=== PATIENT | male | born 1980 | race Caucasian/White ===

== ENCOUNTER 2018-02-16 23:15 | Emergency (ER) | payer OTHER ==
--- NOTE | 2018-02-16 23:27 | ER Report ---
History and Physical Time Seen By MD: 23:26 HPI/ROS CHIEF COMPLAINT: Altered mental status, hypoxia HISTORY OF PRESENT ILLNESS: 37-year-old male from [place] brought here by his friend with concerns over his altered mental status. Patient's been at work with his friends. He's visiting a facility from [place]. He's been exposed to pool chemicals and products. Friends denies alcohol ingestion. Patient's note a decreased pulse ox. Patient's here from altitude. He does regularly runs long distances upwards of 10 miles in [place]. When he arrived on Wednesday. He did go for a run without any difficulty. REVIEW OF SYSTEMS: Respiratory: As above Cardiovascular: No chest pain, no palpitations. Gastrointestinal: No vomiting, no abdominal pain. Musculoskeletal: No back pain. Allergies: Coded Allergies: No Known Drug Allergies (Unverified , 02/16/18) Home Meds No Active Prescriptions or Reported Meds Reviewed Nurses Notes: Yes Old Medical Records Reviewed: Yes Constitutional Vital Sign - Last 24 Hours 02/16/18 02/16/18 02/16/18 02/16/18 23:15 23:23 23:28 23:30 Temp 97.9 Pulse ??? 106 107 Resp 22 B/P (MAP) 155/100 (118) 155/100 155/94 (114) Pulse Ox 81 93 O2 Delivery Room Air 02/16/18 02/16/18 02/16/18 02/16/18 23:35 23:35 23:45 23:55 Pulse 110 108 Resp 20 Pulse Ox 92 89 O2 Delivery Nasal Cannula O2 Flow Rate 2.0 3.0 02/17/18 02/17/18 02/17/18 02/17/18 00:00 00:15 00:30 00:45 Pulse 104 120 104 99 Resp 38 18 15 B/P (MAP) 125/102 (110) 139/97 (111) Pulse Ox 91 96 02/17/18 02/17/18 02/17/18 02/17/18 01:00 01:05 01:10 01:20 Pulse ? 107 B/P (MAP) 128/82 (97) Pulse Ox 97 02/17/18 02/17/18 02/17/18 02/17/18 01:30 01:35 01:50 02:00 Pulse 102 96 B/P (MAP) 140/91 (107) 114/78 (90) Pulse Ox 96 96 02/17/18 02/17/18 02/17/18 02/17/18 02:05 02:20 02:30 02:35 Pulse 96 88 80 B/P (MAP) 91/56 (68) Pulse Ox 97 97 97 02/17/18 02/17/18 02/17/18 02/17/18 02:40 02:55 03:00 03:10 Pulse 80 79 78 B/P (MAP) 86/54 (65) Pulse Ox 98 97 98 02/17/18 02/17/18 02/17/18 02/17/18 03:25 03:30 03:40 03:55 Pulse 91 82 ??? B/P (MAP) 78/58 (65) Pulse Ox 98 97 97 02/17/18 02/17/18 02/17/18 02/17/18 04:00 04:10 04:25 04:31 Pulse 96 ??? B/P (MAP) 104/69 (81) 139/95 (110) Pulse Ox 96 02/17/18 02/17/18 02/17/18 02/17/18 04:36 05:00 05:06 05:11 Pulse 94 ? B/P (MAP) ???/??? (1665) Pulse Ox 96 02/17/18 05:30 B/P (MAP) ???/??? (1665) Intake and Output 02/16/18 02/16/18 02/17/18 15:00 23:00 07:00 Intake Total 1015 ml Balance 1015 ml Physical Exam General Appearance: The patient is alert, has no immediate need for airway protection and no current signs of toxicity.. Vital signs stable, room air pulse ox low 80s HEENT: Pupils equal and round no injection. Respiratory: Chest is non tender, lungs are clear to auscultation. No wheezing or rails Cardiac: regular rate and rhythm Gastrointestinal: Abdomen is soft and non tender, no masses, bowel sounds normal. Musculoskeletal: Neck: Neck is supple and non tender. Extremities have full range of motion and are non tender. Skin: No rashes or lesions. DIFFERENTIAL DIAGNOSIS: After history and physical exam differential diagnosis was considered for altered mental status including but not limited to hypoglycemia, infectious process, electrolyte abnormality, head injury and intoxicants. Medical Decision Making Data Points Result Diagram: 02/16/18 2343 02/16/18 2343 Laboratory Hematology Test 02/16/18 00:24 02/16/18 23:43 02/17/18 00:20 Blood Gas Puncture Site Right radial Blood Gas Patient Temperature 98.5 DEGREES Arterial Blood pH 7.37 (7.35-7.45) Arterial Blood Partial Pressure CO2 38 mmHg (32-37) Arterial Blood Partial Pressure O2 97 mmHg (60-80) Arterial Blood HCO3 22 mmol/L (20-26) Arterial Blood Oxygen Saturation 97 % (92-100) Arterial Blood Base Excess -4.0 mmol/L Austin Test Acceptable Oxygen Liters/Minute 2.5 Red Blood Count 5.56 M/uL (4.00-5.60) Mean Corpuscular Volume 87.7 fL (80.0-96.0) Mean Corpuscular Hemoglobin 29.7 pg (26.0-33.0) Mean Corpuscular Hemoglobin Concent 33.9 g/dL (32.0-36.0) Red Cell Distribution Width 14.1 % (11.5-14.5) Mean Platelet Volume 8.7 fL (7.2-11.1) Neutrophils (%) (Auto) 89.8 % (39.4-72.5) Lymphocytes (%) (Auto) 8.9 % (17.6-49.6) Monocytes (%) (Auto) 0.6 % (4.1-12.4) Eosinophils (%) (Auto) 0.0 % (0.4-6.7) Basophils (%) (Auto) 0.7 % (0.3-1.4) Nucleated RBC Relative Count (auto) 0.1 /100WBC Neutrophils # (Auto) 8.9 K/uL (2.0-7.4) Lymphocytes # (Auto) 0.9 K/uL (1.3-3.6) Monocytes # (Auto) 0.1 K/uL (0.3-1.0) Eosinophils # (Auto) 0.0 K/uL (0.0-0.5) Basophils # (Auto) 0.1 K/uL (0.0-0.1) Nucleated RBC Absolute Count (auto) 0.01 K/uL Prothrombin Time 12.0 seconds (12.0-14.4) Prothromb Time International Ratio 0.88 Activated Partial Thromboplast Time 28 seconds (23-35) D-Dimer Quantitative (PE/DVT) 0.94 ug/ml (0-0.50) Sodium Level 148 mmol/L (137-145) Potassium Level 4.3 mmol/L (3.5-5.0) Chloride Level 108 mmol/L (98-107) Carbon Dioxide Level 25 mmol/L (22-30) Blood Urea Nitrogen 13 mg/dl (9-21) Creatinine 1.30 mg/dl (0.66-1.25) Glomerular Filtration Rate Calc > 60.0 Random Glucose 161 mg/dl (75-110) Lactate 3.4 mmol/L (0.7-2.1) Calcium Level 9.7 mg/dl (8.4-10.2) Total Bilirubin 0.3 mg/dl (0.2-1.3) Aspartate Amino Transf (AST/SGOT) 41 U/L (0-35) Alanine Aminotransferase (ALT/SGPT) 43 U/L (0-56) Alkaline Phosphatase 56 U/L (0-126) Troponin I < 0.012 ng/ml B-Type Natriuretic Peptide 6 pg/ml (0-100) Total Protein 8.4 g/dl (6.3-8.2) Albumin 4.9 g/dl (3.5-5.0) Salicylates Level < 10 mg/L Salicylate Last Dose Date unk Acetaminophen Level < 10 ug/ml Serum Alcohol 389 mg/dl Urine Opiates Screen Negative Urine Barbiturates Screen Negative Ur Tricyclic Antidepressants Screen Negative Urine Phencyclidine Screen Negative Urine Amphetamines Screen Negative Urine Benzodiazepines Screen Negative Urine Cocaine Screen Negative Urine Cannabinoids Screen Negative Chemistry Test 02/16/18 00:24 02/16/18 23:43 02/17/18 00:20 Blood Gas Puncture Site Right radial Blood Gas Patient Temperature 98.5 DEGREES Arterial Blood pH 7.37 (7.35-7.45) Arterial Blood Partial Pressure CO2 38 mmHg (32-37) Arterial Blood Partial Pressure O2 97 mmHg (60-80) Arterial Blood HCO3 22 mmol/L (20-26) Arterial Blood Oxygen Saturation 97 % (92-100) Arterial Blood Base Excess -4.0 mmol/L Austin Test Acceptable Oxygen Liters/Minute 2.5 White Blood Count 9.9 k/uL (4.5-11.0) Red Blood Count 5.56 M/uL (4.00-5.60) Hemoglobin 16.5 g/dL (14.0-18.0) Hematocrit 48.8 % (42.0-52.0) Mean Corpuscular Volume 87.7 fL (80.0-96.0) Mean Corpuscular Hemoglobin 29.7 pg (26.0-33.0) Mean Corpuscular Hemoglobin Concent 33.9 g/dL (32.0-36.0) Red Cell Distribution Width 14.1 % (11.5-14.5) Platelet Count 401 K/uL (150-450) Mean Platelet Volume 8.7 fL (7.2-11.1) Neutrophils (%) (Auto) 89.8 % (39.4-72.5) Lymphocytes (%) (Auto) 8.9 % (17.6-49.6) Monocytes (%) (Auto) 0.6 % (4.1-12.4) Eosinophils (%) (Auto) 0.0 % (0.4-6.7) Basophils (%) (Auto) 0.7 % (0.3-1.4) Nucleated RBC Relative Count (auto) 0.1 /100WBC Neutrophils # (Auto) 8.9 K/uL (2.0-7.4) Lymphocytes # (Auto) 0.9 K/uL (1.3-3.6) Monocytes # (Auto) 0.1 K/uL (0.3-1.0) Eosinophils # (Auto) 0.0 K/uL (0.0-0.5) Basophils # (Auto) 0.1 K/uL (0.0-0.1) Nucleated RBC Absolute Count (auto) 0.01 K/uL Prothrombin Time 12.0 seconds (12.0-14.4) Prothromb Time International Ratio 0.88 Activated Partial Thromboplast Time 28 seconds (23-35) D-Dimer Quantitative (PE/DVT) 0.94 ug/ml (0-0.50) Glomerular Filtration Rate Calc > 60.0 Lactate 3.4 mmol/L (0.7-2.1) Calcium Level 9.7 mg/dl (8.4-10.2) Total Bilirubin 0.3 mg/dl (0.2-1.3) Aspartate Amino Transf (AST/SGOT) 41 U/L (0-35) Alanine Aminotransferase (ALT/SGPT) 43 U/L (0-56) Alkaline Phosphatase 56 U/L (0-126) Troponin I < 0.012 ng/ml B-Type Natriuretic Peptide 6 pg/ml (0-100) Total Protein 8.4 g/dl (6.3-8.2) Albumin 4.9 g/dl (3.5-5.0) Salicylates Level < 10 mg/L Salicylate Last Dose Date unk Acetaminophen Level < 10 ug/ml Serum Alcohol 389 mg/dl Urine Opiates Screen Negative Urine Barbiturates Screen Negative Ur Tricyclic Antidepressants Screen Negative Urine Phencyclidine Screen Negative Urine Amphetamines Screen Negative Urine Benzodiazepines Screen Negative Urine Cocaine Screen Negative Urine Cannabinoids Screen Negative Coagulation Test 02/16/18 23:43 Prothrombin Time 12.0 seconds Prothromb Time International Ratio 0.88 Activated Partial Thromboplast Time 28 seconds D-Dimer Quantitative (PE/DVT) 0.94 ug/ml Toxicology Test 02/16/18 23:43 02/17/18 00:20 Salicylates Level < 10 mg/L Salicylate Last Dose Date unk Acetaminophen Level < 10 ug/ml Serum Alcohol 389 mg/dl Urine Opiates Screen Negative Urine Barbiturates Screen Negative Ur Tricyclic Antidepressants Screen Negative Urine Phencyclidine Screen Negative Urine Amphetamines Screen Negative Urine Benzodiazepines Screen Negative Urine Cocaine Screen Negative Urine Cannabinoids Screen Negative EKG/Imaging Imaging X-ray: Single view portable chest x-ray was obtained. I viewed the images myself on the PACS system. My interpretation of the images is: No infiltrate, no effusions, normal mediastinum. The radiologist interpretation had no clinically significant variation from this interpretation. Results: CT scan of the head without contrast was obtained. The results of the study are EXAMINATION: CT head without IV contrast HISTORY: AMS. Hypoxia. TECHNIQUE: Axial CT images of the head were obtained from the vertex to the skull base without IV contrast, with coronal and sagittal 2D reconstructed images. One of the following dose optimization techniques was utilized in the perfor tim of this exam: Automated exposure control; adjustment of the mA and/or kV according to the patient's size; or use of an iterative reconstruction technique. Specific details can be referenced in the facility's radiology CT exam operational policy. COMPARISON: None. FINDINGS: There is mild generalized cerebral and cerebellar parenchymal volume loss, greater than typical for patient age. The intracranial contents are otherwise unremarkable. No CT evidence of intracranial hemorrhage, mass lesion, or acute infarct. No midline shift or extra-axial fluid collections. Irwin-white differ entiation is maintained. The calvarium is intact. The visualized paranasal sinuses and mastoid air cells are unopacified. IMPRESSION: 1. No CT evidence of acute intracranial pathology. 2. Mild generalized parenchymal volume loss, greater than typical for patient age. The study was read by the radiologist. I viewed the images myself on the PACS system. Results: CT scan of the CTA pulmonary angiogram was obtained. The results of the study are The study was read by the radiologist. I viewed the images myself on the PACS system. ED Course/Re-evaluation Clinical Indication for ER IV: Hydration, IV Access ED Course Patient was admitted to an examination room. H&P was done. The differential diagnoses was considered. On clinical examination. Patient has slurred speech and decreased pulse ox. Diagnostic valuation is undertaken. Patient has been here for several days. He did run in 10 miles on Wednesday when he arrived. He appears grossly intoxicated. He smells of alcohol. His friends deny accessed alcohol. Patient denies previous history of drinking or alcohol consumption. Patient was served divorce papers prior to his departure by his . I think is extremely depressed. Patient denies suicidal ideation. He is hypoxic. His chest x-ray is unremarkable. His EKG is unremarkable. He is treated with a DuoNeb. His oxygenation improved. His d-dimer is elevated. A CT angiogram is performed. The patient's unable to cooperate for the examination by holding his breath for proper evaluation. He is monitored for 4 hours while he wakes up from his blood alcohol of 389. Cooperate for the study. Be discharged to his friend's to escort him back to the airport so that immediate fly back home to [place] in the morning. He was treated with a banana bag. A CT scan was also performed for altered mental status. The head scan was unremarkable except for his atrophy which is more severe than we would be expected for his age. I suspect chronic alcoholism. Decision to Disposition Date: Feb 17, 2018 Decision to Disposition Time: 02:33 Depart Departure Latest Vital Signs Vital Signs Date Time Temp Pulse Resp B/P (MAP) Pulse Ox O2 Delivery O2 Flow Rate FiO2 02/17/18 05:30 ???/??? (1665) 02/17/18 05:11 ??? 02/17/18 04:36 96 02/17/18 00:45 15 02/16/18 23:55 3.0 02/16/18 23:35 Nasal Cannula 02/16/18 23:28 97.9 Impression: Primary Impression: Altered mental status, unspecified Additional Impressions: Hypoxia Alcohol intoxication Condition: Improved Disposition: HOME OR SELF-CARE New Scripts No Active Prescriptions or Reported Meds Patient Instructions: Alcohol Intoxication (ED) Additional Instructions: Follow-up with your primary care doctor back home for further evaluation and treatment Normal findings on the CT scan of your chest show: Premature calcification of your coronary arteries, which is worrisome for premature heart disease. He should be consult by rib puller for treatment of this There was also notable gynecomastia. He may have some hormonal problems that need to be treated Get evaluation for thyroid disease/Graves' disease. Problem Qualifiers Primary Impression: Altered mental status, unspecified Altered mental status type: stupor Qualified Codes: R40.1 - Stupor Additional Impressions: Alcohol intoxication Complication of substance-induced condition: uncomplicated Qualified Codes: F10.920 - Alcohol use, unspecified with intoxication, uncomplicated KURT LUCERO DO Feb 16, 2018 23:27
[2018-02-16] MEDS ORDERED: ALBUTEROL/IPRATROPIUM 3 ML NEB NEB ONE (23:30)
--- NOTE | 2018-02-16 23:41 | EKG ---
FACILITY: [facility] PATIENT NAME: ANDERSON PRINGLE : [id number] MR: [id number] V: [id number] EXAM DATE: ORDERING PHYSICIAN: KURT LUCERO TECHNOLOGIST: AKUA Laguna Reason : NEURO Blood Pressure : / mmHG Vent. Rate : 106 BPM Atrial Rate : 106 BPM P-R Int : 186 ms QRS Dur : 096 ms QT Int : 358 ms P-R-T Axes : 065 063 053 degrees QTc Int : 475 ms Sinus tachycardia Otherwise normal ECG No previous ECGs available Confirmed by Reynaldo Cordero ([id number] on 02/17/2018 6:39:03 AM Referred By: Confirmed By:Reynaldo Slater
[2018-02-17 00:07] LABS: PLATELET COUNT, AUTOMATED 401 K/uL (150-450)
[2018-02-17 00:15] LABS: INR 0.88
--- NOTE | 2018-02-17 00:16 | RADIOLOGY IMAGING REPORT ---
[place] [facility] [place] Mic [place] : 1980 MR: [id number] V: [id number] EXAM DATE: ORDERING PHYSICIAN: KURT LUCERO TECHNOLOGIST: Location: [facility] Patient: Mic Pool : 1980 Visit/Account:[id number] Date of Sevice: 02/16/2018 CHEST SINGLE AP 02/16/2018 23:27 hours. HISTORY: Respiratory distress. COMPARISON: None. TECHNIQUE: Portable AP view of the chest. FINDINGS: Tubes/lines/hardware: None. Pulmonary: Lungs are clear. There is no pneumothorax or pleural effusion. Cardiomediastinal: Cardiac and mediastinal silhouettes are within normal limits. Bones/soft tissues: No acute osseous abnormality. The visible abdomen is normal. IMPRESSION: 1. No acute cardiopulmonary process. Report Dictated By: Macarena Lynn at 02/17/2018 12:11 AM Report E-Signed By: Macarena Lynn at 02/17/2018 12:12 AM WSN:[id number]
[2018-02-17] MEDS ORDERED: THIAMINE HCL(*) 200 MG/2 ML IN 100 MG, FOLIC ACID(*) 50 MG/10 ML INJ 1 MG, MULTIVITAMIN... IV ONE (00:38)
[2018-02-17] MEDS ORDERED: NS(*) 0.9% 50 ML BAG 50 ML ONE ×2 (00:47→01:14)
[2018-02-17] MEDS ORDERED: IOPAMIDOL 76% 75 ML INFUS BTL 75 ML ONE ×2 (00:47→01:14)
--- NOTE | 2018-02-17 01:32 | RADIOLOGY IMAGING REPORT ---
FACILITY: [facility] PATIENT NAME: Mic Pool : 1980 MR: [id number] V: [id number] EXAM DATE: ORDERING PHYSICIAN: KURT LUCERO TECHNOLOGIST: Location: [facility] Patient: Mic Pool : 1980 Visit/Account:[id number] Date of Sevice: 02/17/2018 EXAMINATION: CT head without IV contrast HISTORY: AMS. Hypoxia. TECHNIQUE: Axial CT images of the head were obtained from the vertex to the skull base without IV c ontrast, with coronal and sagittal 2D reconstructed images. One of the following dose optimization techniques was utilized in the performance of this exam: Autom ated exposure control; adjustment of the mA and/or kV according to the patient's size; or use of an i terative reconstruction technique. Specific details can be referenced in the facility's radiology C T exam operational policy. COMPARISON: None. FINDINGS: There is mild generalized cerebral and cerebellar parenchymal volume loss, greater than typical for p atient age. The intracranial contents are otherwise unremarkable. No CT evidence of intracranial hem orrhage, mass lesion, or acute infarct. No midline shift or extra-axial fluid collections. Irwin-whi te differentiation is maintained. The calvarium is intact. The visualized paranasal sinuses and mastoid air cells are unopacified. IMPRESSION: 1. No CT evidence of acute intracranial pathology. 2. Mild generalized parenchymal volume loss, greater than typical for patient age. Report Dictated By: Elgin Chahal MD at 02/17/2018 1:23 AM Report E-Signed By: Elgin Chahal MD at 02/17/2018 1:28 AM WSN:[id number]
--- NOTE | 2018-02-17 05:14 | RADIOLOGY IMAGING REPORT ---
FACILITY: [facility] [place] PATIENT NAME: Mic Pool : 1980 MR: [id number] V: [id number] EXAM DATE: ORDERING PHYSICIAN: KURT LUCERO TECHNOLOGIST: Location: [facility] Patient: Mic oPol : 1980 Visit/Account:[id number] Date of Sevice: 02/17/2018 CTA CHEST WW/O CNTR (PULM ANG) HISTORY: Hypoxia. Altered mental status. Elevated d-dimer. Positive blood alcohol. Patient states he did not drink alcohol today. COMPARISON: Chest x-ray earlier same evening. No prior chest CT. TECHNIQUE: Pulmonary embolus protocol - Thin-slice axial imaging of the chest was performed during ma ximal pulmonary arterial opacification with intravenous nonionic iodinated contrast. 3D coronal slab MIPs and 2D reconstructions in the coronal and sagittal planes were performed to aid in pulmonary emb olus detection. [employer] images have been stored on PACS. One of the following dose optimization techniques was utilized in the performance of this exam: Autom ated exposure control; adjustment of the mA and/or kV according to the patient's size; or use of an i terative reconstruction technique. Specific details can be referenced in the facility's radiology CT exam operational policy. CONTRAST: 125 mL of IV [id number]. FINDINGS: Pulmonary arteries: There is adequate opacification of the pulmonary arteries to the segmental branch es. There is mild motion artifact in the left lower lobe. There are no filling defects in the visible pulmonary arteries. Pulmonary arteries are normal in caliber. Thoracic inlet: Normal. Aorta: No aneurysm or dissection. There is no atherosclerosis of the aorta. Heart / Pericardium: The heart is normal. There is no ventricular septal deviation. There is no peric ardial effusion. There is apparent very mild coronary artery calcification (axial images 145 and 149) . Mediastinum / Yu: Normal mediastinum. No lymphadenopathy. Lungs / Pleura: No pleural effusion. Motion artifact in the left lower lobe. There is mild dependent atelectasis. No pneumothorax. The airways are normal. Upper abdomen: Normal. Musculoskeletal/vertebra/body wall: Mild bilateral gynecomastia. Vertebral body heights are maintaine d. No listhesis. IMPRESSION: 1. Motion artifact mildly limits evaluation of the left lower lobe. No pulmonary embolus within limit s of the examination. 2. Very mild LAD calcification, but advanced for age. Potentially the more distal focus could be da fact due to motion, but the more proximal focus appears to be a real finding. 3. Bilateral gynecomastia. These findings were discussed by phone with KURT LUCERO on 02/17/2018 5:08 AM. Report Dictated By: Macarena Lynn at 02/17/2018 4:55 AM Report E-Signed By: Macarena Lynn at 02/17/2018 5:10 AM WSN:[id number]
== END 2018-02-17 07:10 | disposition home or self-care (01) ==
LOC: ER 23:43
DX: R41.82 Altered mental status, unspecified (principal); R40.1 Stupor; R09.02 Hypoxemia; F10.120 Alcohol abuse with intoxication, uncomplicated; Y90.8 Blood alcohol level of 240 mg/100 ml or more
CPT/HCPCS: 36600; 70450; 71045; 71275; 80305; 80320; 80329; 82803; 83605; 83880; 84484; 85025; 85379; 85610; 85730; 93005; 94640; 96365; 96366; 99284; J3411; J3475; J7030; J7050; J7620; Q9967; 82040; 82247; 82310; 82374; 82435; 82565; 82947; 84075; 84132; 84155; 84295; 84450; 84460; 84520; 99285